=== PATIENT | female | born 1930 | race Caucasian/White ===

== ENCOUNTER 2017-12-26 08:26 | Day surgery (SDC) | payer MEDICARE, MEDICAID ==
[~2017-12-26] VITALS: Ht 160 cm; Wt 54.4 kg
[~2017-12-26 08:26] MED LIST: ALLO100T PO; ASPI-1159 PO; BALANCED SALT IRRIG SOLN COMB1 500ML OP ONE; CARV3.1242 PO; FERR325T6 PO; FURO20TA4 PO; FURO40TA5 PO; GABA-529 PO; GLIM2TAB2 PO; OMEP20CA10 PO; SIMV40TA5 PO
[2017-12-26] MEDS ORDERED: TROPICAMIDE 1% OPHTH DROPS 15ML LEFTEYE SCH (08:30)
[2017-12-26] MEDS ORDERED: CYCLOPENTOLATE HCL 1% OPHTH DROPS 2ML LEFTEYE SCH (08:30)
[2017-12-26] MEDS ORDERED: PHENYLEPHRINE HCL 10% OPHTH DROPS 5ML LEFTEYE SCH (08:30)
[2017-12-26] MEDS ORDERED: HYALURONATE SODIUM 14 MG/ML 0.85ML SYRINGE IO ONE (10:04)
[2017-12-26] MEDS ORDERED: MIDAZOLAM HCL 2 MG/2 ML VIAL ONE (10:26)
[2017-12-26] MEDS ORDERED: PROPOFOL 200MG/20ML VIAL IV ONE (10:26)
[2017-12-26] MEDS ORDERED: LIDOCAINE HCL 1% 20ML VIAL (Pyxis) INJ ONE (10:27)
[2017-12-26] MEDS ORDERED: SODIUM CHLORIDE 0.9% 1,000 ML IV ONE (10:48)
[2017-12-26] MEDS ORDERED: IBUPROFEN 600MG TABLET PO ONE (11:00)
[2017-12-26] MEDS ORDERED: ONDANSETRON HCL 4MG/2ML VIAL IV PRN (11:00)
[2017-12-26] MEDS ORDERED: TETRACAINE 0.5% OPHTH DROPS 4ML ONE (15:06)
[2017-12-26] MEDS ORDERED: BALANCED SALT IRRIG SOLN 15ML ONE (15:06)
[2017-12-26] MEDS ORDERED: PHENYLEPHRINE HCL 2.5% OPHTH DROPS 2ML ONE (15:06)
[2017-12-26] MEDS ORDERED: PREDNISOLONE ACETATE 1% OPHTH DROPS 1ML ONE (15:06)
[2017-12-26] MEDS ORDERED: PHENYLEPHRINE HCL 10% OPHTH DROPS 5ML ONE (15:06)
[2017-12-26] MEDS ORDERED: NEO/POLYMYX B SULF/DEXAMETH OPHTH OINT 3.5GM ONE (15:06)
[2017-12-26] MEDS ORDERED: CYCLOPENTOLATE HCL 1% OPHTH DROPS 2ML ONE (15:06)
[2017-12-26] MEDS ORDERED: ACETYLCHOLINE CHLORIDE INTRAOCULAR SOLUTION 1:100 ELECTROLYTE DILUENT IO ONE (15:06)
[2017-12-26] MEDS ORDERED: LIDOCAINE HCL 2%/EPINEPHRINE 1:100,000 20 ML VIAL INFIL ONE (15:06)
[2017-12-26] MEDS ORDERED: BUPIVACAINE HCL/PF 0.75% (7.5MG/ML) 10ML ONE (15:06)
[2017-12-26] MEDS ORDERED: OFLOXACIN 0.3% OPHTH SOLN 5ML ONE (15:06)
[2017-12-26] MEDS ORDERED: TROPICAMIDE 1% OPHTH DROPS 15ML ONE (15:06)
== END 2017-12-26 12:45 | disposition home or self-care (01) ==
LOC: OR 08:26
PROVIDERS: ATTEND Ophthalmology
DX: H25.012 Cortical age-related cataract, left eye (principal); Z79.899 Other long term (current) drug therapy; Z79.82 Long term (current) use of aspirin
CPT/HCPCS: 66984; 82962; J2250; J3490; J7120; V2632; J2704